=== PATIENT | male | born 1965 | race African-American/Black ===

== ENCOUNTER 2020-03-13 11:01 | Emergency (ER) | payer SELFPAY ==
[2020-03-13] MEDS ORDERED: COLCHICINE0.6 M2 PO ×2 (12:16)
[2020-03-13] MEDS ORDERED: VOLTAREN1%GEL TOP ×2 (12:16)
[2020-03-13] MEDS ORDERED: MOTRIN400 MG PO ×2 (12:16)
[2020-03-13 12:26] VITALS: BP 127/92
== END 2020-03-13 12:55 | disposition home or self-care (01) | DRG 556 ==
LOC: ED 11:01
DX: M25.571 Pain in right ankle and joints of right foot (principal)

== ENCOUNTER 2020-07-02 11:58 | Emergency (ER) | payer SELFPAY ==
[~2020-07-02] VITALS: Ht 175.3 cm; Wt 71.0 kg
[~2020-07-02 11:58] MED LIST: COLCHICINE0.6 M2 PO; MOTRIN400 MG PO; VOLTAREN1%GEL TOP
[2020-07-02] MEDS ORDERED: CYCLOBENZAPR5 MG PO (13:12)
[2020-07-02] MEDS ORDERED: IBUPROFEN600 MG PO (13:12)
[2020-07-02 13:20] VITALS: BP 134/83
== END 2020-07-02 13:20 | disposition home or self-care (01) | DRG 552 ==
LOC: ED 11:58
DX: M54.5 Low back pain (principal)